=== PATIENT | female | born 1940 | race Caucasian/White ===

== ENCOUNTER 2016-08-29 12:19 | Emergency (ER) | payer MEDICARE, BC ==
[2016-08-29] MEDS: Succinylcholine 200 MG/10 ML MDV IV STA (12:23)
[2016-08-29] MEDS ORDERED: Sodium Chloride 0.9% 500 ML IV SCH (12:27)
[2016-08-29] MEDS: Sodium Chloride 0.9% 500 ML IV STA (12:27)
[2016-08-29] MEDS: LORazepam 2 MG/ML MDV IVPUSH ONE (12:36)
[2016-08-29] MEDS ORDERED: Sodium Chloride 0.9% 2.5 ML Syringe FLUSH PRN ×2 (12:42)
[2016-08-29] MEDS ORDERED: Sodium Chloride 0.9% 10 ML Syringe FLUSH PRN ×2 (12:42)
[2016-08-29] MEDS: Propofol 200 MG/20 ML SDV IVPUSH ONE (12:49)
[2016-08-29] MEDS: Sodium Chloride 0.9% 1,000 ML IV ONE (12:49)
--- NOTE | 2016-08-29 12:53 | EDM.PDOC ---
ED HPI SEIZURE COMPLAINT - General Chief Complaint: Neurological Problem Stated Complaint: SEIZURES Time Seen by Provider: 08/29/16 12:31 Source of Information: Reports: EMS History Limitations: Reports: Altered mental status - History of Present Illness INITIAL COMMENTS - FREE TEXT/NARRATIVE: HPI: 75-year-old female and is very functional lives at home with a history of renal carcinoma with intracranial metastases hypertension and elevated cholesterol now brought in by EMS with a report one hour of continuous seizures. No known DO NOT RESUSCITATE status patient presumed to BE full code. Patient was initially evaluated by a BLS crew who transported the patient and made an exchange on the highway with our ALS crew. On assumption of care patient was unresponsive. She is stable blood pressure and pulse and was breathing spontaneously. Blood glucose was greater than 100. Supplemental oxygen was administered with ventilatory assistance with bag valve mask however as patient was achieving good oxygen saturations she was not intubated prior to arrival. Seizure activity stopped after 2-1/2 mg of Versed was administered IV. On arrival GCS 3 with eye deviation to the right. Close friend who found or became aware of patient's status and fell 911 present in the emergency department. Pastoral care discussed the patient's care with family member via phone and we were informed that the patient is indeed full code. Review of systems: As per history of present illness and below otherwise all systems reviewed and negative. Past medical history: As per history of present illness and as reviewed below otherwise noncontributory. Surgical history: As per history of present illness and as reviewed below otherwise noncontributory. Social history: No reported history of drug or alcohol abuse. Family history: As per history of present illness and as reviewed below otherwise noncontributory. Physical exam: HEENT: Atraumatic, normocephalic, pupils asked, negative for conjunctival pallor or scleral icterus, mucous membranes moist, trachea midline. Bilateral eye deviation to the right Lungs: Clear to auscultation, breath sounds equal bilaterally Heart: S1S2, regular, negative for clicks, rubs, or JVD. Abdomen: Soft, nondistended, Negative for masses or hepatosplenomegaly. Pelvis: Stable nontender. Genitourinary: Deferred. Rectal: Deferred. Extremities: Atraumatic. Neurovascular unremarkable. Neuro: GCS 3 on arrival. No spontaneous eye opening nonverbal no response to pain. Diagnostics: [] Therapeutics: [] Impression: [] Plan: [Patient with GCS of 3 on arrival. [id number] ventilation during preparation for intubation. Patient intubated by me with one attempt. Blunt 120 mg of succinylcholine administered a 7.5 ETT inserted to 21 cm at the lip without difficulty. Cords visualized, breath sounds appreciated bilaterally post intubation. Positive end-tidal CO2 with symmetrical breath sounds. Placement confirmed by chest x-ray report given to me by Dr. Cope. EKG with ectopic atrial tachycardia unifocal at ventricular rate of 121. RBBB, left anterior hemiblock. No STEMI. Labs Pending. Case discussed with Dr. Calvillo at [facility] in [place], he is aware of history and findings accept patient in transfer to the emergency department for reevaluation, had CT scanning, and to arrange ICU admission. Patient continues to be seizure free after total benzodiazepine administration of 2-1/2 mg of Versed and route and 1 mg of Ativan in the ED. Since GCS improved to 6 after intubation. Spontaneous movements of the extremities address with propofol 50 mg bolus administered IV push by me. Propofol drip started. IV fluid bolus running. Patient hemodynamically stable and continues to have pulse ox in the mid 90s. Patient will be transferred via helicopter. Helicopter transport crew present in ED for transfer. Definitive disposition and diagnosis as appropriate pending reevaluation and review of above. - Related Data Allergies/ADRs: Allergies Allergy/AdvReac Type Severity Reaction Status Date / Time dexamethasone [From Decadron] Allergy Unknown Change Verified 06/12/16 14:56 Mental Status Home Meds: Home Meds Hydrochlorothiazide 1 tab PO DAILY 06/08/16 [History] Levothyroxine [Synthroid] 1 tab PO DAILY 06/08/16 [History] Metoprolol Tartrate 1 tab PO DAILY 06/08/16 [History] Simvastatin [Zocor] 1 tab PO BID 06/08/16 [History] Zonisamide 1 cap PO DAILY 06/08/16 [History] levETIRAcetam [Levetiracetam] 1 tab PO BID 06/08/16 [History] Zonisamide 2 tab PO BEDTIME 06/12/16 [History] Past Medical History HEENT History: Reports: Cataract Cardiovascular History: Reports: High cholesterol, Hypertension Respiratory History: Reports: None Gastrointestinal History: Reports: None Genitourinary History: Reports: None [employer] History: Reports: Musculoskeletal History: Reports: None Neurological History: Reports: Seizure Psychiatric History: Reports: None Endocrine/Metabolic History: Reports: None Hematologic History: Reports: None Immunologic History: Reports: None Oncologic (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, Metastatic, Renal Dermatologic History: Reports: Other (see below) Other Dermatologic History: skin allergy - Infectious Disease History Infectious Disease History: Reports: None - Past Surgical History Head Surgeries/Procedures: Reports: Craniotomy Social & Family History - Family History Family Medical History: Noncontributory - Tobacco Use Smoking Status *Q: Never Smoker - Caffeine Use Caffeine Use: Reports: Coffee - Recreational Drug Use Recreational Drug Use: No ED ROS GENERAL - Review of Systems Review Of Systems: See Below (see History of present illness) - Physical Exam Exam: See Below (See history of present illness) Course - Orders/Labs/Meds Orders: Active Orders 24 hr Category Date Time Status EKG Documentation Completion [RC] STAT Care 08/29/16 12:43 Active Peripheral IV Care [RC] . DIRECTED Care 08/29/16 12:43 Active Propofol [Diprivan 100 ML] 100 ml Med 08/29/16 12:45 Ordered IV TITRATE Sodium Chloride 0.9% [Saline Flush] Med 08/29/16 12:42 Active 10 ml FLUSH ASDIRECTED PRN Sodium Chloride 0.9% [Saline Flush] Med 08/29/16 12:42 Active 10 ml FLUSH ASDIRECTED PRN Sodium Chloride 0.9% [Saline Flush] Med 08/29/16 12:42 Active 2.5 ml FLUSH ASDIRECTED PRN Sodium Chloride 0.9% [Saline Flush] Med 08/29/16 12:42 Active 2.5 ml FLUSH ASDIRECTED PRN Desired Level of Sedation (RASS) [AST] Click To Edit Oth 08/29/16 12:39 Ordered Peripheral IV Insertion Adult [OM.PC] Stat Oth 08/29/16 12:43 Ordered Medication Orders Propofol (Diprivan 100 Ml) 100 mls @ 3.402 mls/hr IV TITRATE HALLIE; 5 MCG/KG/MIN PRN Reason: Protocol Sodium Chloride (Saline Flush) 10 ml FLUSH ASDIRECTED PRN PRN Reason: Keep Vein Open Sodium Chloride (Saline Flush) 2.5 ml FLUSH ASDIRECTED PRN PRN Reason: Keep Vein Open Sodium Chloride (Saline Flush) 10 ml FLUSH ASDIRECTED PRN PRN Reason: Keep Vein Open Sodium Chloride (Saline Flush) 2.5 ml FLUSH ASDIRECTED PRN PRN Reason: Keep Vein Open Labs: Laboratory Tests 08/29/16 08/29/16 08/29/16 Range/Units 12:28 12:28 12:28 WBC 8.85 (4.0-11.0) K/uL RBC 3.61 L (4.30-5.90) M/uL Hgb 11.3 L (12.0-16.0) g/dL Hct 35.5 L (36.0-46.0) % MCV 98.3 H (80.0-98.0) fL MCH 31.3 (27.0-32.0) pg MCHC 31.8 (31.0-37.0) g/dL RDW Std Deviation 62.2 H (28.0-62.0) fl RDW Coeff of Raul 17 H (11.0-15.0) % Plt Count 114 L (150-400) K/uL MPV 10.30 (7.40-12.00) fL Neut % (Auto) 82.7 H (48.0-80.0) % Lymph % (Auto) 10.6 L (16.0-40.0) % [place] % (Auto) 5.4 (0.0-15.0) % Eos % (Auto) 1.1 (0.0-7.0) % Baso % (Auto) 0.2 (0.0-1.5) % Neut # 7.3 H (1.4-5.7) K/uL Lymph # 0.9 (0.6-2.4) K/uL [facility] [facility] # 0.5 (0.0-0.8) K/uL Eos # 0.1 (0.0-0.7) K/uL Baso # 0.0 (0.0-0.1) K/uL Nucleated RBC % 0.0 /100WBC Nucleated RBCs # 0 K/uL Sodium 143 (136-146) mmol/L Potassium 5.5 H (3.5-5.1) mmol/L Chloride 109 (98-110) mmol/L Carbon Dioxide 23 (21-31) mmol/L BUN 35 H (6.0-23.0) mg/dL Creatinine 1.3 (0.6-1.5) mg/dL Est Cr Clr Drug Dosing 31.88 mL/min Estimated GFR (MDRD) 40.2 ml/min Glucose 112 H (60-110) mg/dL Calcium 9.3 (8.8-10.8) mg/dL Total Bilirubin 0.2 (0.1-1.5) mg/dL AST 40 (5-40) IU/L ALT 29 (8-54) IU/L Alkaline Phosphatase 88 (40-150) Troponin I < 0.10 (0.0-0.29) NG/ML Total Protein 7.7 (6.0-8.0) g/dL Albumin 3.5 (3.4-4.8) g/dL Globulin 4.2 H (2.0-3.5) g/dL Albumin/Globulin Ratio 0.8 L (1.3-2.8) Urine Color Urine Appearance Urine pH (5.0-8.0) Ur Specific [place] (1.001-1.035) Urine Protein (NEGATIVE) mg/dL Urine Glucose (UA) (NEGATIVE) mg/dL Urine Ketones (NEGATIVE) mg/dL Urine Occult Blood (NEGATIVE) Urine Nitrite (NEGATIVE) Urine Bilirubin (NEGATIVE) Urine Urobilinogen (<2.0) EU/dL Ur Leukocyte Esterase (NEGATIVE) Urine RBC (0-2/HPF) Urine WBC (0-5/HPF) Ur Epithelial Cells (NONE-FEW) Urine Bacteria (NEGATIVE) 08/29/16 Range/Units 12:51 WBC (4.0-11.0) K/uL RBC (4.30-5.90) M/uL Hgb (12.0-16.0) g/dL Hct (36.0-46.0) % MCV (80.0-98.0) fL MCH (27.0-32.0) pg MCHC (31.0-37.0) g/dL RDW Std Deviation (28.0-62.0) fl RDW Coeff of Raul (11.0-15.0) % Plt Count (150-400) K/uL MPV (7.40-12.00) fL Neut % (Auto) (48.0-80.0) % Lymph % (Auto) (16.0-40.0) % [place] % (Auto) (0.0-15.0) % Eos % (Auto) (0.0-7.0) % Baso % (Auto) (0.0-1.5) % Neut # (1.4-5.7) K/uL Lymph # (0.6-2.4) K/uL [facility] # (0.0-0.8) K/uL Eos # (0.0-0.7) K/uL Baso # (0.0-0.1) K/uL Nucleated RBC % /100WBC Nucleated RBCs # K/uL Sodium (136-146) mmol/L Potassium (3.5-5.1) mmol/L Chloride (98-110) mmol/L Carbon Dioxide (21-31) mmol/L BUN (6.0-23.0) mg/dL Creatinine (0.6-1.5) mg/dL Est Cr Clr Drug Dosing mL/min Estimated GFR (MDRD) ml/min Glucose (60-110) mg/dL Calcium (8.8-10.8) mg/dL Total Bilirubin (0.1-1.5) mg/dL AST (5-40) IU/L ALT (8-54) IU/L Alkaline Phosphatase (40-150) Troponin I (0.0-0.29) NG/ML Total Protein (6.0-8.0) g/dL Albumin (3.4-4.8) g/dL Globulin (2.0-3.5) g/dL Albumin/Globulin Ratio (1.3-2.8) Urine Color YELLOW Urine Appearance CLEAR Urine pH 7.0 (5.0-8.0) Ur Specific [place] 1.010 (1.001-1.035) Urine Protein NEGATIVE (NEGATIVE) mg/dL Urine Glucose (UA) NEGATIVE (NEGATIVE) mg/dL Urine Ketones NEGATIVE (NEGATIVE) mg/dL Urine Occult Blood NEGATIVE (NEGATIVE) Urine Nitrite NEGATIVE (NEGATIVE) Urine Bilirubin NEGATIVE (NEGATIVE) Urine Urobilinogen 0.2 (<2.0) EU/dL Ur Leukocyte Esterase NEGATIVE (NEGATIVE) Urine RBC 0-1 (0-2/HPF) Urine WBC 0-1 (0-5/HPF) Ur Epithelial Cells FEW (NONE-FEW) Urine Bacteria FEW (NEGATIVE) Meds: Medications Generic Name Dose Route Start Last Admin Trade Name Fremurali PRN Reason Stop Dose Admin Propofol 100 mls @ 3.402 mls/hr 08/29/16 12:45 Diprivan 100 Ml IV TITRATE HALLIE Protocol 5 MCG/KG/MIN Sodium Chloride 10 ml 08/29/16 12:42 Saline Flush FLUSH ASDIRECTED PRN Keep Vein Open Sodium Chloride 2.5 ml 08/29/16 12:42 Saline Flush FLUSH ASDIRECTED PRN Keep Vein Open Sodium Chloride 10 ml 08/29/16 12:42 Saline Flush FLUSH ASDIRECTED PRN Keep Vein Open Sodium Chloride 2.5 ml 08/29/16 12:42 Saline Flush FLUSH ASDIRECTED PRN Keep Vein Open Discontinued Medications Generic Name Dose Route Start Last Admin Trade Name Wyatt PRN Reason Stop Dose Admin Propofol Confirm 08/29/16 12:39 Diprivan 50 Ml Administered 08/29/16 12:40 Dose 50 mls @ as directed .ROUTE .STK-MED ONE Sodium Chloride 1,000 mls @ 999 mls/hr 08/29/16 12:42 Normal Saline IV 08/29/16 13:42 .Bolus ONE Propofol Confirm 08/29/16 13:06 Diprivan 50 Ml Administered 08/29/16 13:07 Dose 100 mls @ as directed .ROUTE .STK-MED ONE Lorazepam Confirm 08/29/16 12:35 Ativan Administered 08/29/16 12:36 Dose 2 mg .ROUTE .STK-MED ONE Propofol 50 mg 08/29/16 12:38 Diprivan 20 Ml IVPUSH 08/29/16 12:39 ONETIME ONE Propofol Confirm 08/29/16 12:48 Diprivan 20 Ml Administered 08/29/16 12:49 Dose 200 mg .ROUTE .STK-MED ONE Succinylcholine Chloride 0 mg 08/29/16 13:39 Quelicin IV 08/29/16 13:40 .STK-MED ONE Departure - Departure Time of Disposition: 13:25 Disposition: [facility] Clinical Impression: Status epilepticus, Altered mental status, Hypoxia Forms: ED Department Discharge - My Orders Last 24 Hours: My Active Orders 08/29/16 12:39 Desired Level of Sedation (RASS) [AST] Click To Edit 08/29/16 12:42 Sodium Chloride 0.9% [Saline Flush] 10 ml FLUSH ASDIRECTED PRN Sodium Chloride 0.9% [Saline Flush] 10 ml FLUSH ASDIRECTED PRN Sodium Chloride 0.9% [Saline Flush] 2.5 ml FLUSH ASDIRECTED PRN Sodium Chloride 0.9% [Saline Flush] 2.5 ml FLUSH ASDIRECTED PRN 08/29/16 12:43 EKG Documentation Completion [RC] STAT Peripheral IV Care [RC] . DIRECTED Peripheral IV Insertion Adult [OM.PC] Stat 08/29/16 12:45 Propofol [Diprivan 100 ML] 100 ml IV TITRATE - Assessment/Plan Last 24 Hours: My Active Orders 08/29/16 12:39 Desired Level of Sedation (RASS) [AST] Click To Edit 08/29/16 12:42 Sodium Chloride 0.9% [Saline Flush] 10 ml FLUSH ASDIRECTED PRN Sodium Chloride 0.9% [Saline Flush] 10 ml FLUSH ASDIRECTED PRN Sodium Chloride 0.9% [Saline Flush] 2.5 ml FLUSH ASDIRECTED PRN Sodium Chloride 0.9% [Saline Flush] 2.5 ml FLUSH ASDIRECTED PRN 08/29/16 12:43 EKG Documentation Completion [RC] STAT Peripheral IV Care [RC] . DIRECTED Peripheral IV Insertion Adult [OM.PC] Stat 08/29/16 12:45 Propofol [Diprivan 100 ML] 100 ml IV TITRATE
--- NOTE | 2016-08-29 12:56 | CR ---
EXAMINATION: Portable chest radiograph. HISTORY: Intubation. FINDINGS: The trachea is midline. The heart is normal in size for technique. Old left-sided rib fractures are present. There is an endotracheal tube noted with tip approximately 2 cm above the sharla. Left basi lar atelectasis and or infiltrate is noted. Aortic calcifications noted. 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 IMPRESSION: 1. Endotracheal tube approximately 2 cm above the sharla. 2. Mild left basilar atelectasis and/or infiltrate.
[2016-08-29] MEDS ORDERED: Succinylcholine 200 MG/10 ML MDV IV ONE (13:39)
[2016-08-29] MEDS: LORazepam 2 MG/ML MDV ONE (15:23)
[2016-08-29] MEDS: Propofol 200 MG/20 ML SDV ONE (15:23)
[2016-08-29 17:37] VITALS: BP 108/71
== END 2016-08-29 13:25 ==
LOC: MW.ED 12:19
DX: G40.901 Epilepsy, unspecified, not intractable, with status epilepticus (principal); R09.02 Hypoxemia; E78.00 Pure hypercholesterolemia, unspecified; I10 Essential (primary) hypertension; Z88.6 Allergy status to analgesic agent; Z79.899 Other long term (current) drug therapy; Z98.49 Cataract extraction status, unspecified eye; Z90.89 Acquired absence of other organs
CPT/HCPCS: 43753; 71010; 80053; 81001; 84484; 85025; 93005; 96361; 96365; 96374; 96375; 99291; J0330; J2060; J7040; 99284; J2704